=== PATIENT | female | born 2000 | race Caucasian/White ===

== ENCOUNTER → 2021-03-07 03:40 | Outpatient (CLI) | payer BC, SELFPAY ==
[2021-03-07 19:13] LABS: SARS-CoV-2 RNA PCR Negative
== END ==
PROVIDERS: PCP Physician Assistant; Visit Provider Physician Assistant
DX: J02.9 Acute pharyngitis, unspecified (principal); Z20.822 Contact with and (suspected) exposure to COVID-19
CPT/HCPCS: C9803; U0003; U0005

== ENCOUNTER 2022-07-28 12:49 | Emergency (ER) | payer SELFPAY ==
--- NOTE | ~2022-07-28 | XR_ITS ---
XR hand RT min 3V DATE: 07/28/2022 13:22 INDICATION: Fall one week ago. Fifth metacarpal pain. TECHNIQUE: 3 views of right hand COMPARISON: None FINDINGS: No recent fracture or dislocation. No periosteal reaction or bone destruction. No erosive c hange or chondrocalcinosis. IMPRESSION: No recent fracture or dislocation Reviewed, dictated and finalized at location A. [facility]
[2022-07-28 13:00] VITALS: BP 118/72; PULSE 94; RESP 18; TEMP 36.5; O2SAT 97
--- NOTE | 2022-07-28 13:14 | ED.UPPEXIN ---
HPI - Extremity Injury (Upper) General Chief Complaint: Extremity Injury, Upper Stated Complaint: Rt Hand Pain Due to Fall Time Seen by Provider: 07/28/22 13:07 Source: patient and family (Mother) Mode of arrival: ambulatory Limitations: no limitations History of Present Illness HPI narrative: Patient presents today complaining of right hand pain after falling at home 1 week ago. Localizes her pain to the 5th finger. Denies numbness or tingling in the hand or fingers. She has been taking ibuprofen and applying ice without much relief. Currently rates her pain 8/10. History of cerebellar ataxia and autism. Related Data Home Medications Medication Instructions Recorded Confirmed No Home Medications 07/28/22 07/28/22 Allergies Allergy/AdvReac Type Severity Reaction Status Date / Time AMOXICILLIN TRIHYDRATE AdvReac Mild Hives Uncoded 07/28/22 13:00 POTASSIUM CLAVULANATE AdvReac Mild Hives Uncoded 07/28/22 13:00 Review of Systems Review of Systems: CONSTITUTIONAL: Denies body aches, fever, chills, or sweats. EYES: Denies visual changes, redness, or discharge. ENT: Denies rhinorrhea, congestion, sore throat, or otalgia. CARDIOVASCULAR: Denies chest pain, palpitations, or edema. RESPIRATORY: Denies cough or dyspnea. GASTROINTESTINAL: Denies abdominal pain, nausea, vomiting, or diarrhea. GENITOURINARY: Denies dysuria or hematuria. SKIN: Denies rash, itching, or wounds. MUSCULOSKELETAL: Denies back pain, or myalgia.+ right hand injury NEUROLOGIC: Denies headache, numbness, tingling, or weakness. PSYCH: Denies depression or anxiety. [facility] Past Medical History Medical History (Updated 07/28/22 @ 13:45 by Kiki Helm, SCIENCE EDITOR, ) Autism Cerebellar ataxia Comments At time of signature, I have reviewed and agree with nursing past medical, surgical, social and family history unless otherwise noted. Please see nursing chart for further information. There is no relevant family history pertinent to the presenting complaint Exam Narrative: GENERAL: Well-appearing, well-nourished, and in no acute distress. HEAD: Normocephalic, atraumatic. EYES: EOMI. No redness or drainage. Conjunctivae normal. ENT: Mucous membranes pink and moist. NECK: Normal AROM. CHEST: No respiratory distress. EXTREMITIES: Right hand: Mild tenderness to the right 5th finger without edema or ecchymosis. No tenderness to the remainder of the fingers or hand. No tenderness to the wrist. Full range of motion of the wrist and fingers without pain. Distal sensation intact. Capillary refill normal. Radial pulse normal. SKIN: Warm, dry, no rash. Capillary refill normal. Normal skin turgor. NEURO: No focal deficits. Alert and oriented x3. Gait steady. PSYCH: Normal affect. No signs of depression or anxiety. Course Course Level of Care: Express Care Visit Vital Signs Vital signs: Vital Signs Temperature 97.7 F 07/28/22 13:00 Pulse Rate 94 07/28/22 13:00 Respiratory Rate 18 07/28/22 13:00 Blood Pressure 118/72 07/28/22 13:00 Pulse Oximetry 97 07/28/22 13:00 Oxygen Delivery Room Air 07/28/22 13:00 Temperature 97.7 F 07/28/22 13:00 Pulse Rate 94 07/28/22 13:00 Respiratory Rate 18 07/28/22 13:00 Blood Pressure 118/72 07/28/22 13:00 Pulse Oximetry 97 07/28/22 13:00 Oxygen Delivery Room Air 07/28/22 13:00 Reviewed Procedures Orthopedic Splinting/Casting Injury #1: Splinting/Casting Date: 07/28/22 Splinting/Casting Time: 13:46 Side: right Upper Extremity Injury Location: finger Upper Extremity Immobilizer: finger (other) Splint: prefabricated Pre-Formed: metal foam finger splint Pre-Procedure Neuro Vascular Exam: normal Post-Procedure Neuro Vascular Exam: normal Additional Comments: Placed by RN MDM - Extremity Injury (Upper) Differential Diagnosis Differential diagnosis: Likely finger sprain, fracture of hand and othe
== END 2022-07-28 13:56 | disposition home or self-care (01) ==
PROVIDERS: Emergency Provider Nurse Practitioner; PCP Physician Assistant
DX: S63.616A Unspecified sprain of right little finger, initial encounter (principal); W19.XXXA Unspecified fall, initial encounter; F84.0 Autistic disorder; G11.9 Hereditary ataxia, unspecified
CPT/HCPCS: 29130; 73130; 99213; G0463